=== PATIENT | male | born 1995 | race Caucasian/White ===

== ENCOUNTER 2021-06-25 00:03 | Emergency (ER) | payer OTHER ==
[~2021-06-25] VITALS: Ht 182.9 cm; Wt 100.0 kg
[2021-06-25 00:18] VITALS: BP 137/85
[2021-06-25] MEDS ORDERED: HYDROCODONE/ACETAMINOPHEN 5/325MG TABLET PO ONE (00:45)
[2021-06-25] MEDS ORDERED: IBUP-2030 MT (02:14)
[2021-06-25] MEDS ORDERED: HYDR-4001 MT (02:20)
== END 2021-06-25 02:38 | disposition home or self-care (01) ==
LOC: ER 00:03
DX: S40.022A Contusion of left upper arm, initial encounter (principal); S80.12XA Contusion of left lower leg, initial encounter; S80.11XA Contusion of right lower leg, initial encounter; W01.0XXA Fall on same level from slipping, tripping and stumbling without subsequent striking against object, initial encounter; Y93.89 Activity, other specified; Y92.89 Other specified places as the place of occurrence of the external cause; Y99.8 Other external cause status
CPT/HCPCS: 73030; 73080; 73610; 99284; A4565

== ENCOUNTER 2022-04-24 20:07 | Emergency (ER) | payer MEDICAID, OTHER ==
[~2022-04-24] VITALS: Ht 182.9 cm; Wt 108.0 kg
[~2022-04-24 20:07] MED LIST: HYDR-4001 MT; IBUP-2030 MT
[2022-04-25] MEDS ORDERED: IBUP-2029 MT (02:22)
[2022-04-25 03:24] VITALS: BP 112/78
== END 2022-04-25 02:00 | disposition home or self-care (01) ==
LOC: ER 20:07
DX: S92.492A Other fracture of left great toe, initial encounter for closed fracture (principal); X58.XXXA Exposure to other specified factors, initial encounter; Y93.89 Activity, other specified; Y92.89 Other specified places as the place of occurrence of the external cause; Y99.8 Other external cause status; Z79.899 Other long term (current) drug therapy
CPT/HCPCS: 73630; 99283; Z7610

== ENCOUNTER 2023-08-17 19:15 | Emergency (ER) | payer SELFPAY ==
[~2023-08-17] VITALS: Ht 182.9 cm; Wt 100.2 kg
[~2023-08-17 19:15] MED LIST changes: +IBUP-2029 MT
[2023-08-17 19:42] VITALS: BP 133/92; PULSE 108; RESP 18; TEMP 98.6; O2SAT 100
[2023-08-17] MEDS ORDERED: LIDOCAINE HCL 1% 20ML VIAL (Pyxis) INJ INFIL ONE (23:30)
[2023-08-18] MEDS: LIDOCAINE HCL 1% 20ML VIAL (Pyxis) INJ INFIL NR (01:12)
[2023-08-18] MEDS ORDERED: NAPR-1129 MT (01:13)
[2023-08-18] MEDS ORDERED: METR-167 MT (01:29)
[2023-08-18] MEDS ORDERED: CEPH500C2 MT (01:29)
== END 2023-08-18 01:46 | disposition home or self-care (01) ==
LOC: ER 19:15
DX: L05.01 Pilonidal cyst with abscess (principal)
CPT/HCPCS: 10081; 99284; J3490; Z7610 ×3